=== PATIENT | female | born 1945 | race Caucasian/White ===

== ENCOUNTER 2017-03-19 15:44 | Outpatient (CLI) | payer MEDICARE, BC ==
--- NOTE | 2017-03-19 18:25 | MRI ---
MRI RIGHT KNEE WITHOUT CONTRAST 03/19/17 HISTORY: Right sided medial knee pain for 6-8 weeks. COMPARISON: None. FINDINGS: MEDIAL MENISCUS: Mild degenerative signal at the body of the medial meniscus. No displaced tearing. LATERAL MENISCUS: Intact. ACL, PCL, MCL, LCL are all intact. EXTENSOR MECHANISM: Quadriceps tendon, patella, and patellar tendon are all intact. BONES: No acute fracture or malalignment. Small osteophytes of the patella as well as the weightbearing neida face medial femoral condyle. SOFT TISSUES: There is mild edema along the deep margin of the iliotibial band at the lateral femoral epicondyle. No significant popliteal cyst. Muscle signal and bulk is normal. IMPRESSION: 1. Mild degenerative signal at the body of the medial meniscus. 2. Small osteophytes at the medial compartment and patellofemoral compartment. 3. Mild edema of the deep margin of the iliotibial band at the lateral femoral epicondyle can b e seen with iliotibial band friction syndrome. POS: [facility]
== END 2017-03-19 15:45 | disposition home or self-care (01) ==
LOC: SCSMRI 15:44
PROVIDERS: ATTEND Orthopaedic Surgery
DX: M25.561 Pain in right knee (principal); M23.303 Other meniscus derangements, unspecified medial meniscus, right knee; M25.761 Osteophyte, right knee; R60.0 Localized edema

== ENCOUNTER 2019-08-07 13:55 | Outpatient (CLI) | payer MEDICARE, BC ==
--- NOTE | 2019-08-07 14:23 | RAD ---
XR Lumbar Spine 2 Or 3 View HISTORY: Back pain, sciatic nerve pain, sciatica COMPARISON: None. FINDINGS: There are facet hypertrophic changes in the lower lumbar spine. There is minimal anterolist hesis of L4 over L5 and L5 over S1 vertebral bodies. No acute fracture or bony destruction is seen. IMPRESSION: Lumbar spondylosis
== END 2019-08-07 13:56 | disposition home or self-care (01) ==
LOC: SCSRAD 13:55
PROVIDERS: ATTEND Nurse Practitioner Family
DX: M54.30 Sciatica, unspecified side (principal); M47.816 Spondylosis without myelopathy or radiculopathy, lumbar region
CPT/HCPCS: 72100

== ENCOUNTER 2019-09-25 14:36 | Outpatient (CLI) | payer MEDICARE, BC ==
--- NOTE | 2019-09-25 16:47 | MRI ---
MRI LUMBAR SPINE: Date: 09-25-2019 Provided Clinical History: Lumbar radiculopathy and low back pain. FINDINGS: Five lumbar vertebral bodies are assumed. Grade I anterolisthesis of L3 on L4 and L4 on L5. Lumbar ve rtebral body heights appear preserved. No focal concerning regional marrow signal abnormality apparen t. The conus medullaris is normal in signal and terminates at an appropriate level. The visualized ex traspinal soft tissues appear unremarkable. Parapelvic renal cysts are seen involving the left kidney . L1-2: There is no significant central canal or foraminal narrowing apparent. There is advanced bilate ral facet arthritis. L2-3: There is a broad based disc bulge and bilateral facet arthritis. There is mild central canal st enosis. There is no significant foraminal narrowing apparent. L3-4: There is a broad based disc bulge and bilateral facet arthritis. There is moderate central bobby l stenosis and mild right foraminal narrowing. There is an annular tear involving the foraminal porti on of the disc right of midline. L4-5: There is a broad based disc bulge and bilateral facet arthritis. There is no significant centra l canal stenosis apparent. There is no significant foraminal narrowing apparent. There is disc space height loss and disc dessication. L5-S1: There is a broad based disc bulge and bilateral facet arthritis. There is potential for mass e ffect upon the exited right L5 nerve root in the lateral region right of midline. There is no signifi cant central canal or foraminal narrowing apparent. IMPRESSION: Advanced multilevel lumbar disc and facet degenerative change with canal and foraminal narrowing as d escribed. POS: [facility]
== END 2019-09-25 14:37 | disposition home or self-care (01) ==
LOC: TBSIIMAG 14:36
PROVIDERS: ATTEND Neurological Surgery
DX: M47.26 Other spondylosis with radiculopathy, lumbar region (principal); M51.16 Intervertebral disc disorders with radiculopathy, lumbar region; M48.061 Spinal stenosis, lumbar region without neurogenic claudication; M51.87 Other intervertebral disc disorders, lumbosacral region
CPT/HCPCS: 72148

== ENCOUNTER 2025-03-30 10:42 | Outpatient (CLI) | payer MEDICARE | END 2025-03-30 10:43 | disposition home or self-care (01) | LOC: SCSRAD 10:42 | PROVIDERS: ATTEND Family Medicine | DX: M54.59 Other low back pain (principal); M43.16 Spondylolisthesis, lumbar region; M47.816 Spondylosis without myelopathy or radiculopathy, lumbar region; M48.061 Spinal stenosis, lumbar region without neurogenic claudication; M48.07 Spinal stenosis, lumbosacral region | CPT/HCPCS: 72120 ==